=== PATIENT | female | born 1935 | race Caucasian/White ===

== ENCOUNTER 2021-01-05 12:16 | Emergency (ER) | payer MEDICARE, OTHER ==
--- NOTE | 2021-01-05 12:34 | EDM.PDOC ---
ED HPI GENERAL MEDICAL PROBLEM - General Chief Complaint: General Stated Complaint: FELL - HIP PAIN Time Seen by Provider: 01/05/21 12:34 Source of Information: Reports: Patient - History of Present Illness INITIAL COMMENTS - FREE TEXT/NARRATIVE: Elisha, 85-year-old female, presents via ambulance secondary of right hip pain. She states she fell early this morning approximately 1 AM and was unable to get back up. She states the discomfort was bearable so she was able to sleep on the floor through the night. Her spouse is extremely hard of hearing and was unaware of the situation. This morning she was able to call her neighbor who presented to assist her. At that time it was determined she needed an ambulance to which she reluctantly agreed to, but did finally accept the fact she would need medical attention. She denies any other contributing factors stating that she did not become dizzy or disoriented, she did not strike her head or any other parts of the body. She states that she went down she "hit directly on the bump of my hip." No fever chills, no Covid symptoms or exposures. She is not been to the facility prior and no old records are reviewable. We do know she experiences hypertension as well as diabetes mellitus. - Related Data Allergies Allergy/AdvReac Type Severity Reaction Status Date / Time No Known Allergies Allergy Verified 01/05/21 12:49 Past Medical History Cardiovascular History: Reports: Hypertension Endocrine/Metabolic History: Reports: Diabetes, Type II Social & Family History - Family History Family Medical History: No Pertinent Family History ED ROS GENERAL - Review of Systems Review Of Systems: Comprehensive ROS is negative, except as noted in HPI. Constitutional: Denies: Fever, Chills Respiratory: Denies: Shortness of Breath Cardiovascular: Denies: Chest Pain, Claudication ED EXAM, GENERAL - Physical Exam Exam: See Below Free Text/Narrative:: Alert, oriented in mild distress. She is laying supine with the right leg externally rotated and slightly shortened. Distal pulses present skin is warm and dry. HEENT negative discharge deformity with no evidence of any contusion or injury. Neck is soft supple with no lymphadenopathy. Thorax is clear mildly diminished with no wheezes no crackles. Cardiac is S1-S2 is a grade 1 systolic murmur. Abdomen is soft bowel sounds are present. There is tenderness to the right hip and proximal lateral femur region. There is no tenderness to the left lower extremity nor to the pelvic region. CMS is present to the foot and digits of the right lower extremity. She has a ulceration to the left heel which would be considered poor healing diabetic onset. She is not taking any medications today. I explained to her we need routine lab work including blood work to make sure stability of renal function as well as rhabdomyolysis, secondary of the time she is spent on the floor. Course - Vital Signs Last Recorded V/S: Last Vital Signs Temp 98.2 F 01/05/21 13:16 Pulse 100 01/05/21 13:16 Resp 20 01/05/21 13:16 BP 109/78 01/05/21 13:20 Pulse Ox 98 01/05/21 13:16 - Orders/Labs/Meds Orders: Active Orders 24 hr Category Date Time Status Peripheral IV Care [RC] . DIRECTED Care 01/05/21 12:44 Active Sodium Chloride 0.9% @ 150 MLS/HR (1000ml) Med 01/05/21 13:45 Ordered Sodium Chloride 0.9% [Normal Saline] 1,000 ml IV ASDIRECTED Sodium Chloride 0.9% [Saline Flush] Med 01/05/21 12:43 Active 10 ml FLUSH Q8HR PRN Peripheral IV Insertion Adult [OM.PC] Routine Oth 01/05/21 12:43 Ordered Medication Orders Sodium Chloride (Normal Saline) 1,000 mls @ 150 mls/hr IV ASDIRECTED [facility] Last Admin: 01/05/21 13:54 Dose: 150 mls/hr Documented by: JEWELL Sodium Chloride (Sodium Chloride 0.9% 10 Ml Syringe) 10 ml FLUSH Q8HR PRN PRN Reason: keep vein open Labs: Laboratory Tests 01/05/21 01/05/21 01/05/21 Range/Units 12:50 12:50 13:41 WBC 9.35 (5.00-10.00) 10^3/uL RBC 3.20 L (3.80-5.50) 10^6/uL Hgb 11.1 L (12.0-16.0) g/dL Hct 32.0 L (37.0-47.0) % MCV 100.0 H (82.0-92.0) fL MCH 34.7 H (27.0-31.0) pg MCHC 34.7 (32.0-36.0) g/dL RDW 16.8 H (11.5-14.5) % Plt Count 308 (150-400) 10^3/uL MPV 9.7 (7.4-10.4) fL Immature Gran % (Auto) 0.9 (0.0-5.0) % Neut % (Auto) 89.7 H (50.0-70.0) % Lymph % (Auto) 4.1 L (20.0-40.0) % Terrell % (Auto) 5.3 (2.0-8.0) % Eos % (Auto) 0.0 L (1.0-3.0) % Baso % (Auto) 0.0 (0.0-1.0) % Neut # (Auto) 8.39 H (2.50-7.00) 10^3/uL Lymph # (Auto) 0.38 L (1.00-4.00) 10^3/uL Terrell # (Auto) 0.50 (0.10-0.80) 10^3/uL Eos # (Auto) 0.00 L (0.10-0.30) 10^3/uL Baso # (Auto) 0.00 (0.00-0.10) 10^3/uL Immature Gran # (Auto) 0.08 (0.00-0.50) 10^3/uL Sodium 130 L (136-145) mmol/L Potassium 4.7 (3.5-5.1) mmol/L Chloride 97 L (98-107) mmol/L Carbon Dioxide 19.9 L (21.0-32.0) mmol/L Anion Gap 17.8 H (5-15) mmol/L BUN 26 H (7-18) mg/dL Creatinine 1.02 (0.51-1.17) mg/dL Est Cr Clr Drug Dosing 33.96 mL/min Estimated GFR (MDRD) 52 mL/min Glucose 300 H (70-140) mg/dL Calcium 9.3 (8.7-10.3) mg/dL Total Bilirubin 0.5 (0.2-1.0) mg/dL AST 19 (15-37) U/L ALT 19 (14-63) U/L Alkaline Phosphatase 96 (46-116) U/L Creatine Kinase 299 H* (26-276) U/L Total Protein 7.5 (6.4-8.2) g/dL Albumin 3.84 (3.40-5.00) g/dL SARS CoV-2 RNA Rapid GLEN Negative (NEGATIVE) Meds: Medications Generic Name Dose Route Start Last Admin Trade Name Freq PRN Reason Stop Dose Admin Sodium Chloride 1,000 mls @ 150 mls/hr 01/05/21 13:45 01/05/21 13:54 Normal Saline IV 150 mls/hr ASDIRECTED EVELIO Administration Sodium Chloride 10 ml 01/05/21 12:43 Sodium Chloride 0.9% 10 Ml Syringe FLUSH Q8HR PRN keep vein open Departure - Departure Time of Disposition: 13:46 Disposition: DC/Tfer to Acute Hospital 02 Condition: Fair Clinical Impression: Hip pain, right, Fracture of hip, right, closed, Fall at home, Diabetes - Discharge Information *PRESCRIPTION DRUG MONITORING PROGRAM REVIEWED*: Not Applicable *COPY OF PRESCRIPTION DRUG MONITORING REPORT IN PATIENT ALYX: Not Applicable Referrals: Flavia Manzo MD [Primary Care Provider] - Forms: ED Department Discharge, Interfacility Transfer EMTALA Additional Instructions: [facility] excepting Dr. Baez. Will be transported via [facility] for admission and treatment. Sepsis Event Note (ED) - Focused Exam Vital Signs: Vital Signs Temp Pulse Resp BP Pulse Ox 01/05/21 13:20 109/78 01/05/21 13:16 98.2 F 100 20 100/79 98 01/05/21 12:32 97.7 F 106 H 20 146/77 H 95 ED Communication - ED Communication Date/Time Date: 01/05/21 Time Called: 13:34 - Discussed Case With (1) Discussed Case With (1): Admitting Provider, Other Provider Person/s Notified (1): [facility] - Discussed Case With (2) Discussed Case With (2): Admitting Provider Person/s Notified (3): Dr baez accepting - Problem List & Annotations (1) Hip pain, right SNOMED Code(s): 71803252 Code(s): M25.551 - PAIN IN RIGHT HIP Status: Acute Priority: High Current Visit: Yes (2) Fracture of hip, right, closed SNOMED Code(s): 341394261 Code(s): S72.001A - FRACTURE OF UNSP PART OF NECK OF RIGHT FEMUR, INIT Status: Acute Priority: High Current Visit: Yes Qualifiers: Encounter type: initial encounter Qualified Code(s): S72.001A - Fracture of unspecified part of neck of right femur, initial encounter for closed fracture (3) Diabetes SNOMED Code(s): 20191902 Code(s): E11.9 - TYPE 2 DIABETES MELLITUS WITHOUT COMPLICATIONS Status: Acute Current Visit: Yes Qualifiers: Diabetes mellitus type: type 2 Diabetes mellitus complication status: with skin complications Diabetes mellitus complication detail: with foot ulcer (4) Fall at home SNOMED Code(s): 27150454 Code(s): W19.XXXA - UNSPECIFIED FALL, INITIAL ENCOUNTER; Y92.009 - UNSP PLACE IN UNSP NON-INSTITUT (PRIVATE) RESIDENCE PLACE Status: Acute Priority: High Current Visit: Yes Qualifiers: Encounter type: initial encounter Qualified Code(s): W19.XXXA - Unspecified fall, initial encounter; Y92.009 - Unspecified place in unspecified non- institutional (private) residence as the place of occurrence of the external cause (5) Heel ulcer due to DM SNOMED Code(s): 018645401 Code(s): E11.621 - TYPE 2 DIABETES MELLITUS WITH FOOT ULCER; L97.409 - NON- PRS CHRONIC ULCER OF UNSP HEEL AND MIDFOOT W UNSP SEVERT Status: Chronic Priority: Medium Current Visit: Yes Qualifiers: Diabetes mellitus type: type 2 Laterality: left Non-pressure ulcer stage: with other severity Qualified Code(s): E11.621 - Type 2 diabetes mellitus with foot ulcer; L97.428 - Non-pressure chronic ulcer of left heel and midfoot with other specified severity (6) Elevated CK SNOMED Code(s): 868721639 Code(s): R74.8 - ABNORMAL LEVELS OF OTHER SERUM ENZYMES Status: Acute Priority: High Current Visit: Yes (7) COVID-19 ruled out by laboratory testing SNOMED Code(s): 329822755372358348, [id number] Code(s): Z20.822 - CONTACT WITH AND (SUSPECTED) EXPOSURE TO COVID-19 Status: Acute Current Visit: Yes - Problem List Review Problem List Initiated/Reviewed/Updated: Yes - My Orders Last 24 Hours: My Active Orders 01/05/21 12:43 Sodium Chloride 0.9% [Saline Flush] 10 ml FLUSH Q8HR PRN Peripheral IV Insertion Adult [OM.PC] Routine 01/05/21 12:44 Peripheral IV Care [RC] . DIRECTED 01/05/21 13:45 Sodium Chloride 0.9% @ 150 MLS/HR (1000ml) Sodium Chloride 0.9% [Normal Saline] 1,000 ml IV ASDIRECTED - Assessment/Plan Last 24 Hours: My Active Orders 01/05/21 12:43 Sodium Chloride 0.9% [Saline Flush] 10 ml FLUSH Q8HR PRN Peripheral IV Insertion Adult [OM.PC] Routine 01/05/21 12:44 Peripheral IV Care [RC] . DIRECTED 01/05/21 13:45 Sodium Chloride 0.9% @ 150 MLS/HR (1000ml) Sodium Chloride 0.9% [Normal Saline] 1,000 ml IV ASDIRECTED Plan: Contact [facility] one call for transfer for orthopedic consultation. All images have been pushed to their facility. Copies of the lab work and radiology report are included in the transfer packet. Discussion with [facility] with orthopedics and Dr. Baez in the emergency department excepting [phone].
[2021-01-05] MEDS ORDERED: Sodium Chloride 0.9% 10 ML Syringe FLUSH PRN (12:43)
[2021-01-05 13:29] LABS: ANION GAP 17.8 mmol/L (5-15)
--- NOTE | 2021-01-05 13:35 | CR ---
[id number] RAD/RAD Chest PA or AP 1V EXAM: RAD Chest PA or AP 1V INDICATION: FALL. COMPARISON: None. DISCUSSION/IMPRESSION: Cardiomediastinal silhouette is normal in size and contour. Lungs are clear. No pleural effusion or pneumothorax. No visible rib fracture. Parth Le MD 01/05/21 [id number] Thank you for allowing us to participate in the care of your patient.
--- NOTE | 2021-01-05 13:35 | CR ---
[id number] RAD/RAD Pelvis W Right Lateral Hip Exam: RAD Pelvis W Right Lateral Hip Clinical Data: RIGHT HIP PAIN TRAUMA COMPARISON: NO PREVIOUS SIMILAR EXAM IS AVAILABLE FINDINGS: An intratrochanteric fracture of the right hip is seen IMPRESSION: RIGHT HIP FRACTURE Romel Rhodes MD 01/05/21 [id number] Thank you for allowing us to participate in the care of your patient.
[2021-01-05] MEDS: Sodium Chloride 0.9% 1,000 ML IV SCH (13:54)
== END 2021-01-05 13:20 ==
LOC: KA.ED 12:16
DX: S72.141A Displaced intertrochanteric fracture of right femur, initial encounter for closed fracture (principal); E11.9 Type 2 diabetes mellitus without complications; I10 Essential (primary) hypertension; W19.XXXA Unspecified fall, initial encounter
CPT/HCPCS: 36415; 71045; 80053; 82550; 85025; 99284; 99285-25; J7030; U0002